=== PATIENT | male | born 1975 | race Caucasian/White ===

== ENCOUNTER 2023-09-15 18:24 | Emergency (ER) | payer OTHER, SELFPAY ==
[2023-09-15 18:27] VITALS: BP 149/95; PULSE 101; RESP 18; TEMP 36.6; O2SAT 95
--- NOTE | 2023-09-15 18:43 | PC.NURSE ---
DENTAL REFERRAL LIST PROVIDED.
--- NOTE | 2023-09-15 19:20 | ED.DENTAL ---
HPI - Dental/Oral General Chief complaint: Dental/Oral Stated complaint: L SIDE TOOTH ACHE Source: patient Mode of arrival: ambulatory Limitations: no limitations History of Present Illness HPI Narrative: Patient is a 48-year-old male with left upper jaw pain from dental decay and cavities. We have given information on dentistry. MD Complaint: tooth pain Location: Tooth # ( Patient has dental decay throughout the entire mouth; the bad tooth is a partial tooth with fracture) Onset (ago): day(s) (2) Duration: constant Severity: moderate Severity scale (1-10): 7 Relieving factors: NSAIDs Exacerbating factors: chewing, cold, heat and drinking fluids Context: history of dental caries and poor dental care Associated symptoms: gum swelling Treatment prior to arrival: topical analgesic and oral analgesic Related Data Allergies Allergy/AdvReac Type Severity Reaction Status Date / Time No Known Allergies Allergy Verified 09/15/23 18:33 Review of Systems Review of Systems: All systems reviewed & are unremarkable except as noted in HPI and below Constitutional: Constitutional: Reports no additional constitutional complaints Eyes: Eyes: Reports no additional eye complaints ENT: Reports system reviewed and no additional complaints, except as documented Cardiovascular: Cardiovascular: Reports no additional cardiovascular complaints Respiratory: Respiratory: Reports no additional respiratory complaints Gastrointestinal: Gastrointestinal: Reports no additional gastrointestinal complaints Genitourinary: Genitourinary: Reports no additional male genitourinary complaints Musculoskeletal: Musculoskeletal: Reports no additional musculoskeletal complaints Integumentary/Breasts: Skin/Breast: Reports system reviewed and no additional complaints, except as docu Neurologic: Reports system reviewed and no additional complaints, except as documented Psychiatric: Psychiatric: Reports no additional psychiatric complaints Endocrine: Endocrine: Reports no additional endocrine complaints Hematologic/Lymphatic: Hematologic/Lymphatic: Reports no additional hematologic/lymphatic complaints Allergic/Immunologic: Allergic/Immunologic: Reports no additional allergic/immunologic complaints Exam Const: General: healthy appearing Nutritional Appearance: well nourished Orientation/consciousness: patient oriented x3 HENMT: Head: normal to inspection Ears: external ears normal Face/Nose/Sinus: Normal external nose present Other: severe dental decay throughout the entire mouth; gingivitis and dental fractures appreciated; the painful tooth is partial and decayed to the root Eyes: Conjunctivae: conjunctivae normal Pupils: Equal, round and reactive pupils present EOM: EOMs intact bilaterally Neck: Neck: normal visual inspection Chest: Chest palpation & inspection: normal inspection of the chest Resp: Effort & Inspection: normal respiratory effort and not labored Auscultation: clear to auscultation bilaterally Cardio: Rate: regular rate Rhythm: regular rhythm Heart sounds: no murmurs GI: Inspection: non-distended Auscultation: normal bowel sounds : General: Yes bladder normal to palpation Back/Spine/Pelvis: Back: no CVA tenderness Skin: General skin exam: normal color Rashes: no rashes Wounds: no wounds Neuro: General: patient oriented x3 Cranial nerves: Yes Nystagmus not present Speech: normal speech Extrem: General: normal to inspection Psych: Mental Status: mental status grossly normal Affect: normal affect Attitude: cooperative Course Vital Signs Vital signs: Vital Signs Oxygen Delivery Room Air 09/15/23 18:24 Temperature 36.6 C 09/15/23 18:27 Pulse Rate 101 H 09/15/23 18:27 Respiratory Rate 18 09/15/23 18:27 Blood Pressure 149/95 H 09/15/23 18:27 Pulse Oximetry 95 09/15/23 18:27 Oxygen Delivery Room Air 09/15/23 18:27 MDM - Dental/Oral MDM Narrative Medical decis
[2023-09-15] MEDS: KETOROLAC (*BKC) 60 MG/2 ML VIAL IM (19:29)
[2023-09-15] MEDS: AMOXICILLIN/CLAVULANATE K 500-125 MG TAB 1 TABLET PO (19:30)
[2023-09-15 19:33] VITALS: BP 154/87; PULSE 83; RESP 20; TEMP 36.9; O2SAT 97
== END 2023-09-15 19:33 | disposition home or self-care (01) ==
PROVIDERS: Emergency Provider Emergency Medicine; PCP Family Medicine
DX: R68.84 Jaw pain (principal)
CPT/HCPCS: 96372; 99283; A9270; J1885